=== PATIENT | male | born 1990 | race African-American/Black ===

== ENCOUNTER 2017-07-30 09:02 | Emergency (ER) | payer BC, OTHER ==
[2017-07-30] MEDS ORDERED: Adacel (T-DAP) 0.5 ML VIAL ONE (09:16)
[2017-07-30] MEDS ORDERED: Bacitracin Zinc 1 Packet ONE (09:20)
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
== END 2017-07-30 10:05 | disposition home or self-care (01) ==
LOC: ERS 09:02
DX: S70.02XA Contusion of left hip, initial encounter (principal); S50.812A Abrasion of left forearm, initial encounter; V43.52XA Car driver injured in collision with other type car in traffic accident, initial encounter
CPT/HCPCS: 90715; G0390